=== PATIENT | female | born 1945 | race Caucasian/White ===

== ENCOUNTER 2020-08-11 11:06 | Emergency (ER) | payer MEDICARE, SELFPAY ==
--- NOTE | 2020-08-11 | CT_ITS ---
EXAMINATION: CT ANGIOGRAM OF THE CHEST WITH AND WITHOUT CONTRAST (CT PULMONARY ANGIOGRAM FOR PE) CLINICAL INFORMATION: Reason for Exam pt c chest pain and sob b/l leg swelling COMPARISON: Previous chest x-ray from earlier the same day and chest CTA from 2006 TECHNIQUE: Prior to contrast administration, noncontrast localization images were obtained. Subsequently, multidetector volumetric imaging was performed from the thoracic inlet to below the diaphragms following the administration of 80 mL Omnipaque 350 intravenous contrast. No contrast reaction reported Sagittal, coronal, and MIP oblique sagittal reformatted images were obtained on the CT workstation, uploaded to PACS, and reviewed. This CT examination was performed using dose optimization techniques as appropriate, variously including the following: *Automated exposure control *Adjustment of mA and/or kV according to patient size (this includes techniques or standardized protocols for targeted exams where dose is matched to indication/reason for exam; i.e. extremities or head) *Use of iterative reconstruction technique Total exam dose-length product 1787 mGy-cm FINDINGS: QUALITY OF STUDY/CONTRAST BOLUS: Satisfactory. PULMONARY ARTERIES: No central or segmental pulmonary emboli. THORACIC AORTA: No aneurysm or dissection. LUNG: As a small 3 mm calcified right lower lobe nodule axial image 294 series 10. There is a heterogeneous attenuation in the lungs and increased interstitial markings questionable for mild pulmonary edema. There is dependent atelectasis in both lower lobes adjacent to the effusions. PLEURA: There are small bilateral pleural effusions, right greater than left. MEDIASTINUM: The heart is enlarged. There is a tiny pericardial effusion. There are small mediastinal lymph nodes. No enlarged lymph nodes are seen. No evidence of septal bowing or right heart strain. CHEST WALL/AXILLA: There are surgical clips in the right axilla. There is a right breast mass and marked skin thickening and infiltration of the fat suspicious for malignancy. There is a 1.3 x 1.5 cm triangular-shaped calcification. There are collateral vessels seen in the left upper arm and chest wall. OSSEOUS STRUCTURES: No acute or suspicious osseous abnormality. UPPER ABDOMEN: There are bilateral renal cysts. The liver is not completely imaged but may be enlarged. No reflux of contrast into the hepatic veins to suggest elevated right heart pressures. IMPRESSION: No evidence of pulmonary embolism. Enlarged heart, increased interstitial markings and small bilateral pleural effusions questionable for mild CHF. Right breast mass, skin thickening and induration of the fat suggestive of neoplasm. Surgical clips in the right axilla. VTE: negative
--- NOTE | 2020-08-11 | XR_ITS ---
EXAMINATION: XR CHEST CLINICAL INFORMATION: Chest tightness and shortness of breath COMPARISON: Chest radiographs 01/18/2010, 09/04/2007 TECHNIQUE: Portable upright AP view of the chest was obtained. FINDINGS: There is coarsening of the bronchiolar markings with subsegmental atelectasis at the bilateral lateral bases. There is no lobar or segmental airspace consolidation, vascular congestion, or definite effusion. The heart is within the limits of normal size. The hilar and mediastinal contours and bony structures are unremarkable. There are surgical clips overlying right axilla. IMPRESSION: 1. Coarsening bronchiolar markings. Bilateral base subsegmental atelectasis. 2. No lobar or segmental airspace consolidation. No vascular congestion.
--- NOTE | 2020-08-11 | CT_ITS ---
EXAMINATION: CT ABDOMEN AND PELVIS WITH CONTRAST CLINICAL INFORMATION: Nausea, vomiting, diarrhea and abdominal pain. COMPARISON: CTA chest dated 08/28/2007. TECHNIQUE: Multidetector volumetric images were obtained from the superior aspect of the liver through the pubic symphysis following administration 85 mL of Omnipaque 350 intravenous contrast. Sagittal and coronal reformatted images were obtained on the technologist's workstation. Oral contrast: No This CT examination was performed using dose optimization techniques as appropriate, variously including the following: *Automated exposure control *Adjustment of mA and/or kV according to patient size (this includes techniques or standardized protocols for targeted exams where dose is matched to indication/reason for exam; i.e. extremities or head) *Use of iterative reconstruction technique DLP: 1787 mGy-cm FINDINGS: LUNG BASES: There are small right and very small left pleural effusions. There is adjacent compressive atelectasis. Further mild linear scar/subsegmental atelectasis is seen within the right middle lobe and the lingula. A 3 mm noncalcified nodule is newly seen at the lateral right base (17:3). There is a very small pericardial effusion. There are mitral annular and coronary artery atherosclerotic calcifications. There is abnormal right breast dermal and parenchymal soft tissue density, with punctate and coarse calcifications. LIVER, GALLBLADDER, AND BILIARY TREE: The liver is normal in size, shape, and attenuation. No focal hepatic lesion or biliary ductal dilatation is present. The gallbladder is unremarkable with no evidence of radiopaque gallstones, gallbladder wall thickening, or obvious pericholecystic inflammatory changes. PANCREAS: Unremarkable. SPLEEN: Unremarkable. ADRENAL GLANDS: Unremarkable. KIDNEYS AND URETERS: The kidneys are normal in size, shape, and attenuation. No hydronephrosis, hydroureter, or calculi seen. There are multiple low-attenuation bilateral renal probable cysts, some too small to fully characterize with CT. There is mild nonspecific bilateral perinephric stranding. BLADDER: Unremarkable. GASTROINTESTINAL TRACT: A patent sigmoid anastomotic staple line is seen. There is adjacent downstream sigmoid wall thickening (7:53 and 18:69). There is mild diverticulosis, without acute diverticulitis. No obstruction, free intraperitoneal air or abscess is seen. The vermiform appendix appears normal. ABDOMINAL WALL: There is a healed anterior pelvic midline incision. This shows adjacent subcutaneous fat stranding, possibly scarring. There is a diastases rectus. No focal hernia defect is seen. LYMPH NODES: Normal. VASCULAR: There is mild aortoiliac atherosclerotic calcification. No abdominal aortic aneurysm is seen. PELVIC VISCERA: The uterus and adnexa are unremarkable. OSSEOUS STRUCTURES: There is multi-level marked lower thoracic and mild lumbar spondylosis. No acute or aggressive osseous abnormality is seen. IMPRESSION: 1. There is a patent sigmoid anastomotic staple line. There is adjacent downstream focal sigmoid wall thickening, which can be more fully evaluated with a barium enema or endoscopy, if clinically indicated. 2. No obstruction, free intraperitoneal air or abscess is seen. The appendix is normal. There is mild diverticulosis, without acute diverticulitis. 3. No urinary calculus or obstructive uropathy is seen bilaterally. There are low-attenuation bilateral renal probable cysts, too small fully characterize with CT. 4. There are small right and very small left pleural effusions. A pericardial effusion is seen. 5. A 3 mm lateral right base noncalcified nodule is newly seen. According to the UPDATED 2017 Fleischner Society recommendations, the advised follow-up imaging for solid nodules < 6 mm is: LOW RISK PATIENT: No routine follow-up. HIGH RISK PATIENT: Optional CT at 12 months. 6. There is abnormal increased attenuation of the right breast skin and parenchyma, with parenchymal calcifications. This is suspicious for possible malignancy and/or infection. Strongly recommend clinical correlation and correlation with the patient's most recent mammograms.
--- NOTE | 2020-08-11 | ECG_ITS ---
Test Reason : SOB Blood Pressure : / mmHG Vent. Rate : 087 BPM Atrial Rate : 087 BPM P-R Int : 176 ms QRS Dur : 082 ms QT Int : 366 ms P-R-T Axes : 055 018 035 degrees QTc Int : 440 ms Sinus rhythm with frequent Premature ventricular complexes trigeminy Abnormal ECG When compared with ECG of 18-JAN-2010 18:27, Premature ventricular complexes are now Present Heart rate has decreased Referred By: Geovanna Joseph Electronically Signed By:LACIE PETERSON MD
[2020-08-11 11:20] VITALS: BP 130/60; BP 141/65; PULSE 88; RESP 29; TEMP 36.4; O2SAT 100; O2SAT 95; BMI 43.5
[2020-08-11 11:36] LABS: Glucose, Whole Blood 133 mg/dL (60-115)
[2020-08-11 11:57] LABS: MANUAL DIFF FLAG NO
[2020-08-11 11:59] LABS: Basophils Percent Auto 0.3 % (0-2); Eosinophils Absolute Auto 0.2 X10*3/uL (0.0-0.4); Hematocrit 32.5 % (37-47); Hemoglobin 9.4 g/dl (12.0-16.0); Imm Gran Abs Auto 0.01 X10*3/uL (0.00-0.03); Imm Gran Pct Auto 0.1 % (0.0-0.4); Lymphocytes Absolute Auto 0.8 X10*3/uL (1.2-4.9); Mean Corpuscular HGB Conc 28.9 g/dl (31.0-35.0); Mean Corpuscular Hemoglobin 27.7 pg (27.0-33.0); Mean Corpuscular Volume 95.9 fL (80-98); Neutrophils Absolute Auto 5.5 X10*3/uL (2.0-8.3); Neutrophils Percent Auto 72.6 % (45-73); Platelet Count 286 X10*3/uL (160-400); Red Blood Count 3.39 X10*6/uL (4.20-5.50); Red Cell Distribution Width 14.3 % (11.0-16.0); White Blood Count 7.6 X10*3/uL (4.8-10.8)
[2020-08-11 12:05] LABS: INTERNATIONAL NORM RATIO 0.9 (0.9-1.1); Prothrombin Time 10.7 SEC (10.8-13.0)
[2020-08-11] MEDS: Albuterol Sulfate (0.083%) 2.5 MG/3 ML VIAL.NEB INHALE (12:19)
[2020-08-11 12:33] LABS: Alanine Aminotransferase 16 U/L (0-31); Albumin Level 3.6 g/dL (3.5-5.0); Alkaline Phosphatase 88 U/L (39-117); Anion Gap 10 (12-20); Aspartate Amino Transferase 18 U/L (5-31); Bilirubin Direct < 0.2 mg/dL (0.0-0.5); Bilirubin Total 0.2 mg/dL (0.0-1.0); Blood Urea Nitrogen 28 mg/dL (9-16); Calcium 8.7 mg/dL (8.4-10.2); Carbon Dioxide 34 mmol/L (22-29); Chloride 100 mmol/L (96-108); Creatinine Clr Calc Pharmacy 56.5; Estimated Glomerular Filt Rate 55; Glucose Random 144 mg/dL (60-115); Sodium 140 mmol/L (135-145); Total Protein 6.3 g/dL (6.5-8.0)
[2020-08-11 12:36] LABS: B Type Natriuretic Peptide 85 pg/mL (<100); Troponin-I High Sensitivity 8.2 ng/L (<3.5-17.0)
--- NOTE | 2020-08-11 12:43 | ED_ITS ---
HPI - General Adult General Chief complaint: Dyspnea Stated complaint: sob/cp Time Seen by Provider: 08/11/20 11:26 Source: patient Mode of arrival: ambulatory Limitations: no limitations History of Present Illness HPI narrative: 74yoF c PMHX of DM type 2, severe aortic stenosis, pulmonary hypertension, on 2-1/2 to 3 L of nasal cannula oxygen at home, chronic anemia, glaucoma, MRSA, macular degeneration, skin/colon and breast cancer presenting to the ED c c/o 3 weeks of generalized weakness, fatigue, lightheadedness, headaches, cold hands/feet, nose bleeds, Chest tightness, SOB worse c exertion and laying down, b/l leg swelling, dark cloudy urine and black colored stools/constipation intermittently. Denies fevers, N/V, changes in vision, cough, sputum production, back pain or paresthesias. Related Data Previous Rx's Medication Instructions Recorded azithromycin [Zithromax] See Rx Instructions PO .COMPLEX #6 08/11/20 tab prednisone 20 mg PO DAILY 5 Days #5 tab 08/11/20 Allergies Allergy/AdvReac Type Severity Reaction Status Date / Time acetaminophen [From Percocet] Allergy Unknown UNKNOWN Verified 08/11/20 11:19 aspirin [From Percodan] Allergy Unknown UNKNOWN Verified 08/11/20 11:19 codeine [Codeine] Allergy Unknown UNKNOWN Verified 08/11/20 11:19 diazepam [From Valium] Allergy Unknown UNKNOWN Verified 08/11/20 11:19 flurazepam [From Dalmane] Allergy Unknown UNKNOWN Verified 08/11/20 11:19 haloperidol [From Haldol] Allergy Unknown UNKNOWN Verified 08/11/20 11:19 ketamine [From Ketalar] Allergy Unknown UNKNOWN Verified 08/11/20 11:19 lorazepam [From Ativan] Allergy Unknown UNKNOWN Verified 08/11/20 11:19 meperidine [From Demerol] Allergy Unknown UNKNOWN Verified 08/11/20 11:19 morphine [Morphine] Allergy Unknown UNKNOWN Verified 08/11/20 11:19 oxycodone [From Percodan] Allergy Unknown UNKNOWN Verified 08/11/20 11:19 procaine [From Novocain] Allergy Unknown UNKNOWN Verified 08/11/20 11:19 codeine Allergy Unknown hives, Uncoded 03/14/20 00:00 itching, N/V demerol Allergy Unknown hives, Uncoded 03/14/20 00:00 itching, n/v From Dalmane Allergy Unknown UNKNOWN Uncoded 07/20/20 16:45 From Haldol Allergy Unknown UNKNOWN Uncoded 07/20/20 16:45 From Seconal Allergy Unknown UNKNOWN Uncoded 07/20/20 16:45 morphine Allergy Unknown hives, Uncoded 03/14/20 00:00 itching, n/v novaciane Allergy Unknown hypertention, Uncoded 03/14/20 00:00 tachycardia, headaches percodan Allergy Unknown hives, Uncoded 03/14/20 00:00 itching, n/v seconal, haldol, dalmane Allergy Unknown hyperactivity, Uncoded 03/14/20 00:00 tachycardia, hallucination, headaches sodium pent, ketimar, Allergy Unknown hallucinations, Uncoded 03/14/20 00:00 katimine combative tramadol Allergy Unknown hives, Uncoded 03/14/20 00:00 itching, n/v valium, ativan Allergy Unknown headaches, Uncoded 03/14/20 00:00 hallucination, tachycardia Review of Systems Review of Systems: Yes all other systems are reviewed and are negative Constitutional: Constitutional: Reports as per HPI, Denies chills, Denies excessive sweating, Reports fatigue, Denies fever(s), Denies frequent falls, Reports headache(s) and Reports weakness Eyes: Eyes: Reports as per HPI ENT: Reports as per HPI, Denies Normal hearing present, Denies vertigo, Denies dizziness, Denies ear discharge, Reports headache(s), Denies nasal congestion, Denies neck pain and Denies sore throat Cardiovascular: Cardiovascular: Reports as per HPI, Reports chest pain, Denies rapid heart rate, Denies lightheadedness, Denies radiating jaw, neck or arm pain, Denies palpitations, Reports dyspnea, Reports dyspnea on exertion and Reports orthopnea Respiratory: Respiratory: Reports as per HPI, Denies cough, Reports dyspnea and Reports dyspnea on exertion Gastrointestinal: Gastrointestinal: Reports as per HPI, Denies abdominal pain, Denies constipation, Reports diarrhea, Reports nausea and Reports vomiting Genitourinary: Genitourinary: Reports as per HPI, Denies hematuria, Denies change in libido, Denies urinary frequency, Denies dysuria and Denies urinary hesitancy Musculoskeletal: Musculoskeletal: Reports as per HPI, Denies abnormal gait, Denies muscle weakness, Denies neck pain, Denies numbness and Denies tingling Integumentary/Breasts: Skin/Breast: Reports as per HPI and Denies rash Neurologic: Reports as per HPI, Denies Normal hearing present, Denies Neuro- related abnormal movements, Denies Abnormal speech present, Denies abnormal gait, Denies behavioral changes, Denies confusion, Denies vertigo, Denies dizziness, Denies frequent falls, Reports headache(s), Denies focal weakness, Denies memory loss, Denies numbness, Denies Other visual disturbances, Denies convulsions, Denies seizure-like activity, Denies tingling, Denies paresthesias and Reports weakness Psychiatric: Psychiatric: Reports as per HPI, Denies abnormal sleep pattern, Reports anxiety, Denies behavioral changes, Denies change in appetite, Denies change in libido, Denies confusion, Reports depression, Denies difficulty concentrating, Denies auditory hallucinations, Reports hopelessness, Denies irritability, Reports anhedonia, Denies memory loss, Denies mood swings, Denies panic attacks, Denies paranoia, Denies visual hallucinations, Denies hallucinations, Denies tactile hallucinations, Denies homicidal ideation and Denies suicidal ideation Endocrine: Endocrine: Denies change in libido, Denies excessive sweating, Reports fatigue and Denies palpitations Hematologic/Lymphatic: Hematologic/Lymphatic: Reports as per HPI Allergic/Immunologic: Allergic/Immunologic: Reports as per HPI [facility] Social History Social History Alcohol intake: never Smoking Status: Never smoker Use of substances other than those prescribed or required for medical reasons: No Advance Directives: Yes Advance Directives on File: Yes Advance Directives Date on File: 08/11/20 Physical Exam Vital Signs and I&O and Narrative: Vital Signs and I&O: Vital Signs Temp 97.5 F 08/11/20 14:48 Pulse 87 08/11/20 14:48 Resp 18 08/11/20 14:48 BP 121/64 08/11/20 14:48 Pulse Ox 90 L 08/11/20 16:35 Intake & Output 08/10/20 08/11/20 08/11/20 18:59 06:59 18:59 Weight 104.553 kg Body Mass Index 43.5 Const: General: cooperative, comfortable, no acute distress, well developed, alert, awake and Physically active; No confusion Nutritional Appearance: well nourished and obese Orientation/consciousness: patient oriented x3 and No confusion Limitations: physical limitations ( 2 person assist) and other limitations HENMT: Head: Yes normal to inspection, Yes No palpable skull fracture present, Yes normocephalic and Yes atraumatic Ears: hearing grossly normal bilaterally General nose exam: Normal external nose present Face and sinus: Yes normal facial exam Mouth: moist mucous membranes Eyes: General: appearance normal, both eyes and all related structures Visual Shaw: normal visual shaw by confrontation Alignment and Position: alignment normal Periorbital: periorbital findings normal Eyelids: Yes eyelids normal Conjunctivae: conjunctivae normal Sclerae: sclerae normal Pupils: Equal, round and reactive pupils present EOM: EOMs intact bilaterally Neck: Neck: Yes normal visual inspection, Yes full ROM, Yes no lymphadenopathy, Yes no meningeal signs, Yes trachea midline and Yes supple Chest: Chest palpation & inspection: normal inspection of the chest Resp: Effort & Inspection: normal respiratory effort and able to speak in complete sentences Auscultation: clear to auscultation bilaterally, no crackles, no rales, no rhonchi and no wheezes Cardio: Rate: regular rate Rhythm: regular rhythm Heart sounds: S1 no rmal heart sound present and S2 normal heart sound present Peripheral pulses: Peripheral pulses 2+ throughout GI: Inspection: Yes normal to inspection Palpation (GI): Soft to palpation, Tenderness to palpation present (GI) (diffusely) and No hepatosplenomegaly present Percussion: Yes normal to percussion Auscultation: normal bowel sounds Rectal Exam - Female: deferred (patient refused rectal exam) : General: Yes no CVA tenderness Back/Spine/Pelvis: Back: no CVA tenderness Cervical Spine: normal cervical lordosis and cervical ROM normal Thoracic/Lumbar Spine: thoracic and lumbar spine normal to inspection and thoraco-lumbar ROM normal Skin: General skin exam: no rashes or lesions noted, elasticity normal and turgor normal Trauma: no lacerations or abrasions Wounds: no wounds Hair: normal Nails: normal Neuro: General: patient oriented x3, no meningeal signs and No confusion Cranial nerves: Yes CN's II-XII intact bilaterally, Yes Equal, round and re active pupils present and No Normal hearing present Cognition (Neuro): normal cognition Speech: No Abnormal speech present Gait exam (Neuro): Normal gait present Motor exam (neuro): 5/5 motor strength present throughout Extrem: General: Yes normal to inspection, Yes full ROM, Yes capillary refill normal, Yes no clubbing, cyanosis or edema, No no pedal edema, No no calf tenderness, Yes normal gait and No edema Right upper extremity: normal to inspection, full ROM and normal capillary refill; no edema Left upper extremity: normal to inspection, full ROM and normal capillary refill; no edema Right lower extremity: normal to inspection, full ROM and normal capillary refill; no edema Left lower extremity: normal to inspection, full ROM and normal capillary refill; no edema Psych: Appearance: grossly normal and well kempt Mental Status: mental status grossly normal Speech and movement: Normal speech and movement present and Clear speech present Affect: normal affect Attitude: cooperative Thought process: Normal thought process present Thought content: Normal t hought content present Insight: Good insight present (Psych) Judgement: Good judgement present (Psych) Course Course Course Narrative: - Patient with mild anemia when compared to prior her last H&H in June of 2017 was 35. Trop elevated at 8.2 therefore repeat 3 hours after the first obtained and 8.6 therefore negative delta. - CXR nega for pna - CTA of chest neg for PE although revealed right brest mass suggestive of neoplasm. - CT scan of abd/pelvis c IV contrast revealed chronic changes no acute processes. - Will plan to admit if not obtain PT/CM consult then re-evaluate. - patient evaluated by PT therapy and recommended inpatient rehabilitation although patient refused reports that she will not go to a rehab to get COVID. Patient does not meet admission due to she is not tachypneic, not tachycardic, not hypoxic or febrile. Chest x-ray and CTA are negative and all of her CT scan findings on her CT scan of abdomen and pelvis are all chronic therefore will DC home with visiting nurses and instructions to return if any new or worsening symptoms to follow-up with primary care provider, Dr. Carpenter for her breast mass as well. Patient understands agrees the plan. Medical Decision Making MDM Narrative Medical decision making narrative: 74yoF c PMHX of DM type 2, severe aortic stenosis, pulmonary hypertension, on 2-1/2 to 3 L of nasal cannula oxygen at home, chronic anemia, glaucoma, MRSA, macular degeneration, skin/colon and breast cancer presenting to the ED c c/o 3 weeks of generalized weakness, fatigue, lightheadedness, headaches, cold hands/feet, nose bleeds, Chest tightness, SOB worse c exertion and laying down, b/l leg swelling, dark cloudy urine and black colored stools/constipation intermittently. Denies fevers, N/V, changes in vision, cough, sputum production, back pain or paresthesias. - Concern for ACS vs PE vs COPD excerbation. - Plan: Labs, CXR, EKG, CTA of chest to evaluate for PE, CT scan of abdomen and pelvis with IV contrast to evaluate for any acute processes, provide a breathing treatment then re-evaluate. Lab Data Result diagrams: 08/11/20 11:53 08/11/20 11:53 Labs: Lab Results 08/11/20 08/11/20 08/11/20 Range/Units 11:31 11:53 11:53 WBC 7.6 (4.8-10.8) X10*3/uL RBC 3.39 L (4.20-5.50) X10*6/uL Hgb 9.4 L (12.0-16.0) g/dl Hct 32.5 L (37-47) % MCV 95.9 (80-98) fL MCH 27.7 (27.0-33.0) pg MCHC 28.9 L (31.0-35.0) g/dl RDW 14.3 (11.0-16.0) % Plt Count 286 (160-400) X10*3/uL MPV 10.0 (9.4-12.3) fL Immature Gran % (Auto) 0.1 (0.0-0.4) % Neut % (Auto) 72.6 (45-73) % Lymph % (Auto) 11.0 L (20-40) % Wise % (Auto) 13.0 H (2-11) % Eos % (Auto) 3.0 (0-4) % Baso % (Auto) 0.3 (0-2) % Lymph # (Auto) 0.8 L (1.2-4.9) X10*3/uL Wise # (Auto) 1.0 (0.1-1.2) X10*3/uL Eos # (Auto) 0.2 (0.0-0.4) X10*3/uL Baso # (Auto) 0.0 (0.0-0.2) X10*3/uL Abs Immat Gran (auto) 0.01 (0.00-0.03) X10*3/uL Absolute Neuts (auto) 5.5 (2.0-8.3) X10*3/uL Absolute Nucleated RBC 0.000 (0.0-0.012) X10*3/uL Nucleated RBC % (auto) 0.0 (0.0-0.2) /100WBC PT 10.7 L (10.8-13.0) SEC INR 0.9 (0.9-1.1) Sodium (135-145) mmol/L Potassium (3.3-5.1) mmol/l Chloride (96-108) mmol/L Carbon Dioxide (22-29) mmol/L Anion Gap (12-20) BUN (9-16) mg/dL Creatinine (0.5-1.4) mg/dL Estim Creat Clear Calc Estimated GFR POC Glucose 133 H (60-115) mg/dL Random Glucose (60-115) mg/dL Calcium (8.4-10.2) mg/dL Total Bilirubin (0.0-1.0) mg/dL Direct Bilirubin (0.0-0.5) mg/dL AST (5-31) U/L ALT (0-31) U/L Alkaline Phosphatase (39-117) U/L Troponin I High Sens (<3.5-17.0) ng/L B-Natriuretic Peptide (<100) pg/mL Total Protein (6.5-8.0) g/dL Albumin (3.5-5.0) g/dL TSH (0.32-4.0) mIU/mL Urine Color Urine Appearance Urine pH (5.0-8.0) Ur Specific Dougherty (1.005-1.025) Urine Protein (NEG-TRACE) MG/DL Urine Glucose (UA) (NEG) MG/DL Urine Ketones (NEG) MG/DL Urine Blood (NEG) Urine Nitrite (NEG) Ur Leukocyte Esterase (NEG) Urine RBC (0) /HPF Urine WBC (0-4) /HPF Ur Squamous Epith Cells /LPF Urine Bacteria /LPF 08/11/20 08/11/20 08/11/20 Range/Units 11:53 11:53 13:00 WBC (4.8-10.8) X10*3/uL RBC (4.20-5.50) X10*6/uL Hgb (12.0-16.0) g/dl Hct (37-47) % MCV (80-98) fL MCH (27.0-33.0) pg MCHC (31.0-35.0) g/dl RDW (11.0-16.0) % Plt Count (160-400) X10*3/uL MPV (9.4-12.3) fL Immature Gran % (Auto) (0.0-0.4) % Neut % (Auto) (45-73) % Lymph % (Auto) (20-40) % Wise % (Auto) (2-11) % Eos % (Auto) (0-4) % Baso % (Auto) (0-2) % Lymph # (Auto) (1.2-4.9) X10*3/uL Wise # (Auto) (0.1-1.2) X10*3/uL Eos # (Auto) (0.0-0.4) X10*3/uL Baso # (Auto) (0.0-0.2) X10*3/uL Abs Immat Gran (auto) (0.00-0.03) X10*3/uL Absolute Neuts (auto) (2.0-8.3) X10*3/uL Absolute Nucleated RBC (0.0-0.012) X10*3/uL Nucleated RBC % (auto) (0.0-0.2) /100WBC PT (10.8-13.0) SEC INR (0.9-1.1) Sodium 140 (135-145) mmol/L Potassium 4.0 (3.3-5.1) mmol/l Chloride 100 (96-108) mmol/L Carbon Dioxide 34 H (22-29) mmol/L Anion Gap 10 L (12-20) BUN 28 H (9-16) mg/dL Creatinine 1.00 (0.5-1.4) mg/dL Estim Creat Clear Calc 56.5 Estimated GFR 55 POC Glucose (60-115) mg/dL Random Glucose 144 H (60-115) mg/dL Calcium 8.7 (8.4-10.2) mg/dL Total Bilirubin 0.2 (0.0-1.0) mg/dL Direct Bilirubin < 0.2 (0.0-0.5) mg/dL AST 18 (5-31) U/L ALT 16 (0-31) U/L Alkaline Phosphatase 88 (39-117) U/L Troponin I High Sens 8.2 (<3.5-17.0) ng/L B-Natriuretic Peptide 85 (<100) pg/mL Total Protein 6.3 L (6.5-8.0) g/dL Albumin 3.6 (3.5-5.0) g/dL TSH (0.32-4.0) mIU/mL Urine Color YELLOW Urine Appearance CLEAR Urine pH 6.0 (5.0-8.0) Ur Specific Dougherty 1.010 (1.005-1.025) Urine Protein NEG (NEG-TRACE) MG/DL Urine Glucose (UA) NEG (NEG) MG/DL Urine Ketones NEG (NEG) MG/DL Urine Blood NEG (NEG) Urine Nitrite NEG (NEG) Ur Leukocyte Esterase NEG (NEG) Urine RBC 0-2 (0) /HPF Urine WBC 1-4 (0-4) /HPF Ur Squamous Epith Cells 1+ /LPF Urine Bacteria NONE /LPF 08/11/20 08/11/20 08/11/20 Range/Units 13:03 14:24 15:00 WBC (4.8-10.8) X10*3/uL RBC (4.20-5.50) X10*6/uL Hgb (12.0-16.0) g/dl Hct (37-47) % MCV (80-98) fL MCH (27.0-33.0) pg MCHC (31.0-35.0) g/dl RDW (11.0-16.0) % Plt Count (160-400) X10*3/uL MPV (9.4-12.3) fL Immature Gran % (Auto) (0.0-0.4) % Neut % (Auto) (45-73) % Lymph % (Auto) (20-40) % Wise % (Auto) (2-11) % Eos % (Auto) (0-4) % Baso % (Auto) (0-2) % Lymph # (Auto) (1.2-4.9) X10*3/uL Wise # (Auto) (0.1-1.2) X10*3/uL Eos # (Auto) (0.0-0.4) X10*3/uL Baso # (Auto) (0.0-0.2) X10*3/uL Abs Immat Gran (auto) (0.00-0.03) X10*3/uL Absolute Neuts (auto) (2.0-8.3) X10*3/uL Absolute Nucleated RBC (0.0-0.012) X10*3/uL Nucleated RBC % (auto) (0.0-0.2) /100WBC PT (10.8-13.0) SEC INR (0.9-1.1) Sodium (135-145) mmol/L Potassium (3.3-5.1) mmol/l Chloride (96-108) mmol/L Carbon Dioxide (22-29) mmol/L Anion Gap (12-20) BUN (9-16) mg/dL Creatinine (0.5-1.4) mg/dL Estim Creat Clear Calc Estimated GFR POC Glucose 125 H (60-115) mg/dL Random Glucose (60-115) mg/dL Calcium (8.4-10.2) mg/dL Total Bilirubin (0.0-1.0) mg/dL Direct Bilirubin (0.0-0.5) mg/dL AST (5-31) U/L ALT (0-31) U/L Alkaline Phosphatase (39-117) U/L Troponin I High Sens 8.6 (<3.5-17.0) ng/L B-Natriuretic Peptide (<100) pg/mL Total Protein (6.5-8.0) g/dL Albumin (3.5-5.0) g/dL TSH 1.34 (0.32-4.0) mIU/mL Urine Color Urine Appearance Urine pH (5.0-8.0) Ur Specific Dougherty (1.005-1.025) Urine Protein (NEG-TRACE) MG/DL Urine Glucose (UA) (NEG) MG/DL Urine Ketones (NEG) MG/DL Urine Blood (NEG) Urine Nitrite (NEG) Ur Leukocyte Esterase (NEG) Urine RBC (0) /HPF Urine WBC (0-4) /HPF Ur Squamous Epith Cells /LPF Urine Bacteria /LPF ECG Data Attestation: I personally reviewed and interpreted this ECG as follows: Prior ECG tracings: available for review Interpretation: sinus rhythm with frequent PVCs with a ventricular rate of 87, normal QRS duration, normal QT /QTC interval. No acute ischemic changes. Similar compared to priors on 01/18/2010. Discharge Plan Discharge Clinical Impression: Breast mass, right, Pleural effusion, Diverticulosis of colon, Weakness generalized COPD (chronic obstructive pulmonary disease) Qualifiers: COPD type: COPD with acute exacerbation Qualified Code(s): J44.1 - Chronic obstructive pulmonary disease with (acute) exacerbation Patient Disposition: Home, Self-Care Instructions: COPD (Chronic Obstructive Pulmonary Disease) (ED), Pleural Effusion (ED), Breast Mass (ED) Prescriptions: New prednisone 20 mg tablet 20 mg PO DAILY 5 Days Qty: 5 RF: 0 azithromycin [Zithromax] 250 mg tablet See Rx Instructions PO .COMPLEX Qty: 6 RF: 0 Referrals: [facility] [Outside] - 2 days Brian Carpenter MD [Physician] - 2 days (recurrent right breast mass) Print Language: Lithuanian
--- NOTE | 2020-08-11 12:52 | PC.NURSE ---
Lizzie Goldberg [phone]
[2020-08-11 13:21] LABS: Glucose Urine UA NEG (NEG); Leukocyte Esterase Urine NEG (NEG); Nitrite Urine NEG (NEG); Urine Blood NEG (NEG); Urine Ketones NEG (NEG); Urine Protein NEG (NEG-TRACE)
[2020-08-11 13:22] LABS: Appearance Urine CLEAR; Color Urine YELLOW
[2020-08-11 13:34] VITALS: BP 133/61; PULSE 80; RESP 20; TEMP 36.3
[2020-08-11 13:54] LABS: RBC Urine 0-2 /HPF (0); Squamous Epithelial Cell Urine 1+ /LPF
[2020-08-11] MEDS: iohexoL 350 MG/ML 100 ML INFUS..BTL IV (14:09)
[2020-08-11 14:17] LABS: Thyroid Stimulating Hormone 1.34 mIU/mL (0.32-4.0)
[2020-08-11 14:28] LABS: Glucose, Whole Blood 125 mg/dL (60-115)
[2020-08-11 14:48] VITALS: BP 121/64; PULSE 87; RESP 18; TEMP 36.4; O2SAT 100
[2020-08-11 15:34] LABS: Troponin-I High Sensitivity 8.6 ng/L (<3.5-17.0)
--- NOTE | 2020-08-11 15:58 | MHC.CM.ED ---
Received case management consult [facility] [place]. Patient came to ER with multiple complaints. Work up essentially negative. Physical therapy eval ordered and is pending. Anticipate patient will be in ER overnight. Continue to monitor d/c needs.
--- NOTE | 2020-08-11 16:07 | PC.NURSE ---
pt at bedside for an evaluation
[2020-08-11 16:35] VITALS: O2SAT 90
[2020-08-11 16:50] VITALS: BP 135/61; PULSE 90; RESP 20; O2SAT 100
--- NOTE | 2020-08-11 16:56 | MHC.CM.ED ---
Physical therapy eval completed. Short term rehab is recommended. Patient is not interested in STR at this time and is requesting to go home with services. Referral made to [facility] via [employer]. Face to face completed and signed. [facility] with oxygen booked. Med nec with chart. Continue to monitor for d/c needs.
== END 2020-08-11 17:24 | disposition home or self-care (01) ==
PROVIDERS: Physician Assistant Medical; Emergency Provider Internal Medicine; PCP Internal Medicine
DX: J44.1 Chronic obstructive pulmonary disease with (acute) exacerbation (principal); F98.1 Encopresis not due to a substance or known physiological condition; E11.9 Type 2 diabetes mellitus without complications; Z79.899 Other long term (current) drug therapy; Z99.81 Dependence on supplemental oxygen
CPT/HCPCS: 36415; 71045; 71275; 74177; 80048; 80076; 81001; 82947; 83880; 84443; 84484; 85025; 85610; 93005; 97163; 99284

== ENCOUNTER → 2020-09-14 11:49 | Outpatient (BNVA) | payer MEDICARE, SELFPAY | PROVIDERS: PCP Internal Medicine; Referring Provider Internal Medicine; Visit Provider Surgery | DX: Z13.89 Encounter for screening for other disorder (principal) | CPT/HCPCS: 99202 ==

== ENCOUNTER 2020-09-27 12:38 | Outpatient (REF) | payer MEDICARE, SELFPAY ==
[2020-09-27 12:56] VITALS: BP 135/59; PULSE 80; RESP 16; TEMP 36.4; O2SAT 100
[2020-09-27 12:59] VITALS: BMI 44.3
[2020-09-27 13:55] VITALS: BP 153/49; PULSE 82; RESP 18; O2SAT 99
--- NOTE | 2020-09-27 13:56 | P.OP_ITS ---
Operative Note Operative Note Date of Service: 09/27/20 Narrative: Preoperative diagnosis: History of right breast carcinoma and change in right breast with skin thickening and question of mass Postoperative diagnosis: Same Procedure: Examination and biopsy of skin of right breast Anesthesia: Local 1% lidocaine 3 cc Specimen: Skin biopsy right breast Estimated blood loss: 10 cc Immediate complications: none Other findings: The immediate subcutaneous tissues below the area where the skin biopsy was taken were extremely indurated and appeared calcified. It was not possible to cut this tissue with a scalpel. Indications: This is a 75-year-old female with a remote history of right breast carcinoma who reports that she has noticed slow change in her right breast. It has been getting smaller and firmer. She has pain in the area intermittently. She recently was seen in the emergency room for respiratory complaints. A chest CT was obtained and demonstrated a probable right breast mass and diffuse thickening of the skin of the right breast. Procedure detail: Time-out procedure was performed and the operative site was identified. Examination was performed. Lungs were clear to auscultation. Heart was regular in rate and rhythm with a 3/6 holosystolic murmur. The right breast was contracted and firm with some skin thickening noted centrally. The patient in the semi Auguste position, the right breast was prepped with Betadine solution and was draped sterilely. A transverse incision was made at about the 11 o'clock position 2 cm from the areola and was carried into the subcutaneous tissues. The immediate subcutaneous tissues were extremely indurat ed. Clinical impression was that the tissues were calcified. It was not possible to cut through the tissues with the scalpel to obtain a specimen. A portion of the incision margin was excised including a full-thickness of skin and superficial subcutaneous tissue. The specimen measured 0.4 x 1.2 cm. Bleeding from skin edges was controlled using the electrosurgical pencil. The wound was closed with 3 interrupted sutures of 4-0 nylon. A dry sterile dressing was applied. She tolerated the procedure well. She will keep the area dry and covered for 24 hours, will use acetaminophen as needed for pain, and will follow up in the office in about 1 week for suture removal and wound check.
== END 2020-09-27 12:39 | disposition home or self-care (01) ==
LOC: HO.MS 12:38
PROVIDERS: PCP Internal Medicine; Visit Provider Surgery
DX: N64.59 Other signs and symptoms in breast (principal); L90.5 Scar conditions and fibrosis of skin; Z85.3 Personal history of malignant neoplasm of breast; Z92.3 Personal history of irradiation
CPT/HCPCS: 19120; 88305

== ENCOUNTER 2020-10-03 11:14 | Outpatient (REF) | payer MEDICARE, SELFPAY ==
--- NOTE | 2020-10-03 | US_ITS ---
EXAMINATION: ULTRASOUND GUIDED CORE BIOPSY BREAST, RIGHT CLINICAL INFORMATION: Abnormal right breast. Remote history right breast cancer status post lumpectomy and radiation decades ago. Benign right punch biopsy 09/27/2020 (skin with dermal fibrosis, hyalinization and mild epidermal atrophy; no malignancy identified. Findings may be secondary to breast cancer treatment, radiation or surgical scar). Additional tissue sampling requested under ultrasound guidance. Prior outside mammography performed at [facility], approximately 2017. COMPARISON: CTA chest 08/11/2020. FINDINGS: Prior to procedure, patient was offered opportunity for bilateral mammography which was declined. Proper informed consent is obtained from the patient after discussion of the procedure, potential risks and complications, and alternatives. Patient was given an opportunity for questions. The patient appeared to understand. The patient consented to the procedure and signed the consent form. GUIDANCE: Ultrasound-guided; aseptic technique. LESION: Right breast periareolar 9:00 position. There is no specific area targeted. The right breast is diffusely abnormal. Samples obtained from area 2 cm across and 2 cm superficial to deep. APPROACH: Lateral medial. ANESTHESIA: 10 mL 1% lidocaine. DERMATOTOMY: Single skin crystal dermatotomy performed. NEEDLE: 14-gauge Achieve core biopsy device with 13.5-gauge co-axial guide needle. CORES: 6. CLIP: HydroMARK; shape: butterfly. The patient tolerated the procedure well. No immediate complications. Home instructions reviewed with the patient. Final pathology results are pending. US/US breast ndl core biopsy RT IMPRESSION: 1. Status post ultrasound-guided core biopsy right breast. 2. Clip placed: HydroMARK; shape: butterfly. 3. Pathology pending. An addendum report will be issued.
== END 2020-10-03 11:15 | disposition home or self-care (01) ==
LOC: HO.MAMMO 11:14
PROVIDERS: PCP Internal Medicine; Visit Provider Surgery
DX: N63.11 Unspecified lump in the right breast, upper outer quadrant (principal); Z85.3 Personal history of malignant neoplasm of breast
CPT/HCPCS: 19083; 88305; 88342

== ENCOUNTER → 2020-11-07 13:54 | Outpatient (BNVA) | payer MEDICARE, SELFPAY | PROVIDERS: PCP Physician Assistant Medical; Visit Provider Internal Medicine | DX: Z76.89 Persons encountering health services in other specified circumstances (principal) | CPT/HCPCS: Q3014 ==

== ENCOUNTER 2022-02-24 15:38 | Emergency (ER) | payer MEDICARE, SELFPAY ==
[2022-02-24] VITALS (7 sets, daily range): BP systolic 126–146; BP diastolic 55–83; PULSE 81–93; RESP 16–29; TEMP 36.4–36.7; O2SAT 95–100; BMI 45.2
--- NOTE | ~2022-02-24 | XR_ITS ---
EXAMINATION: XR CHEST CLINICAL INFORMATION: Shortness of breath. COMPARISON: CT of the chest dated from 08/11/2020. Chest radiograph also dated from 08/11/2020. TECHNIQUE: AP view of the chest was obtained. FINDINGS: Stable cardiomegaly. Atherosclerotic disease of the thoracic aorta. There is blunting of the left costophrenic angle which may be due to trace pleural effusion. Similar degree of chronic interstitial thickening. No focal consolidation, although evaluation of the left lower lobe/retrocardiac region is somewhat challenging due to overlying enlarged cardiac silhouette. No pneumothorax. No acute osseous abnormalities. Right axillary surgical clips. XR/XR chest 1V IMPRESSION: Small left pleural effusion. No dense consolidation.
--- NOTE | 2022-02-24 16:06 | ED_ITS ---
HPI - SOB/Dyspnea General Chief Complaint: Dyspnea Stated Complaint: SOB, 99% ON DUONEB @ THIS TIME PER EMS Time Seen by Provider: 02/24/22 16:05 Source: patient Mode of arrival: EMS Limitations: no limitations History of Present Illness HPI Narrative: Patient is 76 years old female morbidly obese with history of chronic hypoventilation syndrome and chronic obstructive sleep apnea intolerant to CPAP uses 3 L oxygen all the time comes here for increased shortness of breath last 2 days with increased weight gain and overall swelling of whole body. No chest pain or palpitation occasional cough no fever or chills patient received Solu- Medrol 125 mg IV and DuoNeb treatment prior to arrival Related Data Home Medications Medication Instructions Recorded Confirmed furosemide 20 mg tablet 40 mg PO QAM tab 09/14/20 11/21/20 potassium chloride 10 mEq 10 meq PO DAILY tab 09/14/20 11/21/20 tablet,extended release(part/cryst) (Klor-Con M) mecobalamin (vitamin B12) 5,000 500 mcg PO DAILY tab 11/07/20 11/21/20 mcg disintegrating tablet metformin 500 mg tablet 1,000 mg PO DAILY 11/21/20 11/21/20 Previous Rx's Medication Instructions Recorded atorvastatin 80 mg tablet 80 mg PO BEDTIME #30 tab 09/04/20 carvedilol 6.25 mg tablet (Coreg) 6.25 mg PO BID #60 tab 09/04/20 irbesartan 75 mg tablet 75 mg PO DAILY #30 tab 09/04/20 cuhaswxa-mvn-tutlu acid 0.4 1 tab PO DAILY #30 tab 09/04/20 mg-lycopene 300 mcg-lutein 250 mcg tablet (Centrum Silver) omeprazole magnesium 20 mg 20 mg PO DAILY #30 tab 09/04/20 tablet,delayed release (Prilosec OTC) acetazolamide 250 mg tablet 250 mg PO DAILY 90 Days #90 tab 10/10/21 theophylline 600 mg 300 mg PO Q12H 90 Days #90 tab 10/10/21 tablet,extended release 24 hr albuterol sulfate 90 mcg/actuation 1 puff PO Q4H PRN #17 g 10/22/21 aerosol inhaler Allergies Allergy/AdvReac Type Severity Reaction Status Date / Time acetaminophen [From Percocet] Allergy Unknown UNKNOWN Verified 11/07/20 13:55 aspirin [From Percodan] Allergy Unknown UNKNOWN Verified 11/07/20 13:55 codeine [Codeine] Allergy Unknown UNKNOWN Verified 11/07/20 13:55 diazepam [From Valium] Allergy Unknown UNKNOWN Verified 11/07/20 13:55 flurazepam [From Dalmane] Allergy Unknown UNKNOWN Verified 11/07/20 13:55 haloperidol [From Haldol] Allergy Unknown UNKNOWN Verified 11/07/20 13:55 ketamine [From Ketalar] Allergy Unknown UNKNOWN Verified 11/07/20 13:55 lorazepam [From Ativan] Allergy Unknown UNKNOWN Verified 11/07/20 13:55 meperidine [From Demerol] Allergy Unknown UNKNOWN Verified 11/07/20 13:55 morphine [Morphine] Allergy Unknown UNKNOWN Verified 11/07/20 13:55 oxycodone [From Percodan] Allergy Unknown UNKNOWN Verified 11/07/20 13:55 procaine [From Novocain] Allergy Unknown UNKNOWN Verified 11/07/20 13:55 Review of Systems Review of Systems: Yes all other systems are reviewed and are negative PMFSH Past Medical History Medical History COPD (chronic obstructive pulmonary disease) History of colon cancer, stage I History of right breast cancer Hypoventilation syndrome Morbid obesity KATRINA (obstructive sleep apnea) Respiratory failure Surgical History History of lumpectomy of right breast History of lymph node dissection of right axilla History of partial colectomy Family History Family History Mother Colon cancer Maternal Aunt Colon cancer Social History Social History Alcohol intake: never Patient Tobacco Use Status: Former Tobacco user Use of substances other than those prescribed or required for medical reasons: No Advance Directives: Yes Advance Directives on File: Yes Advance Directives Date on File: 08/11/20 Physical Exam Vital Signs: Vital Signs: Last Vital Signs Temp 98.0 F 02/24/22 22:33 Pulse 91 02/24/22 22:33 Resp 23 H 02/24/22 22:33 BP 144/83 H 04/24/22 22:33 Pulse Ox 95 02/24/22 22:33 Oxygen Flow Rate 3 02/24/22 15:48 BMI result Body Mass Index 45.2 Appearance: Alert. Oriented X3. No acute distress. Eyes: No pallor or icterus ENT: Pharynx normal. Oral Mucosa moist Neck: Normal inspection. Neck supple. CVS: Normal heart rate and rhythm. Pulses normal. Respiratory: No respiratory distress. Equal air entry bilateral, no wheezing/rhonchi , few fine crackles at the bases Abdomen: Soft and nontender. Bowel sounds are present, Skin: Skin warm and dry. Normal skin color. Normal skin turgor. Extremities: No lower extremity edema. No calf tenderness Neuro: Oriented X 3. No motor deficit. Course Reevaluation(s) Reevaluation #1: Patient very anxious feel uncomfortable going home asking for VNA which she used to have in the past no family member around at this time workup is negative for any acute will keep in the ER for observation for case management Time: 20:23 MDM - SOB/Dyspnea MDM Narrative Medical decision making narrative: Patient with COPD and chronic hypoventilation syndrome on home oxygen workup is negative except for mild anemia guaiac is negative patient advised to follow with her PCP patient is saturating 99% at room patient slightly anemic with hemoglobin 8.8 guaiac is negative patient has oxygen at home, patient is saturating 98% on 3 L patient asking for VNA will keep patient for case management Differential Diagnosis Differential diagnosis: Likely acute exacerbation of chronic obstructive airways disease Medical Records Attestation: I reviewed the patient's medical records. Lab Data Attestation: I reviewed the patient's lab results. Result diagrams: 02/24/22 17:12 02/24/22 17:12 Labs: Lab Results 02/24/22 02/24/22 02/24/22 Range/Units 16:54 17:12 17:12 WBC 6.1 (4.8-10.8) X10*3/uL RBC 3.08 L (4.20-5.50) X10*6/uL Hgb 8.8 L (12.0-16.0) g/dl Hct 29.6 L (37.0-47.0) % MCV 96.1 (80.0-98.0) fL MCH 28.6 (27.0-33.0) pg MCHC 29.7 L (31.0-35.0) g/dl RDW 14.6 (11.0-16.0) % Plt Count 213 (160-400) X10*3/uL MPV 10.8 (9.4-12.3) fL Immature Gran % (Auto) 0.2 (0.0-0.4) % Neut % (Auto) 82.5 H (45-73) % Lymph % (Auto) 9.8 L (20-40) % Bledsoe % (Auto) 5.4 (2-11) % Eos % (Auto) 1.8 (0-4) % Baso % (Auto) 0.3 (0-2) % Lymph # (Auto) 0.6 L (1.2-4.9) X10*3/uL Bledsoe # (Auto) 0.3 (0.1-1.2) X10*3/uL Eos # (Auto) 0.1 (0.0-0.4) X10*3/uL Baso # (Auto) 0.0 (0.0-0.2) X10*3/uL Abs Immat Gran (auto) 0.01 (0.00-0.03) X10*3/uL Absolute Neuts (auto) 5.1 (2.0-8.3) x10*3/uL Absolute Nucleated RBC 0.000 (0.0-0.012) X10*3/uL Nucleated RBC % (auto) 0.0 (0.0-0.2) /100WBC D-Dimer High Sensitivty NG/ML Sodium 143 (135-145) mmol/L Potassium 4.9 (3.3-5.1) mmol/L Chloride 105 (96-108) mmol/L Carbon Dioxide 31 H (22-29) mmol/L Anion Gap 12 (12-20) BUN 28 H (9-16) mg/dL Creatinine 1.04 (0.5-1.4) mg/dL Estim Creat Clear Calc 51.9 Estimated GFR 52 POC Glucose 124 H (60-115) mg/dL Random Glucose 135 H (60-115) mg/dL Calcium 9.3 D (8.4-10.2) mg/dL Total Bilirubin 0.2 (0.0-1.0) mg/dL AST 29 D (5-31) U/L ALT 21 (0-31) U/L Alkaline Phosphatase 105 (39-117) U/L Troponin I High Sens (<3.5-17.0) ng/L B-Natriuretic Peptide (<100) pg/mL Total Protein 6.1 L (6.5-8.0) g/dL Albumin 3.2 L (3.5-5.0) g/dL Stool Occult Blood (NEGATIVE) COVID-19 (REBECA) (Negative) COVID-19 Clin Com 02/24/22 02/24/22 02/24/22 Range/Units 17:12 17:12 17:12 WBC (4.8-10.8) X10*3/uL RBC (4.20-5.50) X10*6/uL Hgb (12.0-16.0) g/dl Hct (37.0-47.0) % MCV (80.0-98.0) fL MCH (27.0-33.0) pg MCHC (31.0-35.0) g/dl RDW (11.0-16.0) % Plt Count (160-400) X10*3/uL MPV (9.4-12.3) fL Immature Gran % (Auto) (0.0-0.4) % Neut % (Auto) (45-73) % Lymph % (Auto) (20-40) % Bledsoe % (Auto) (2-11) % Eos % (Auto) (0-4) % Baso % (Auto) (0-2) % Lymph # (Auto) (1.2-4.9) X10*3/uL Bledsoe # (Auto) (0.1-1.2) X10*3/uL Eos # (Auto) (0.0-0.4) X10*3/uL Baso # (Auto) (0.0-0.2) X10*3/uL Abs Immat Gran (auto) (0.00-0.03) X10*3/uL Absolute Neuts (auto) (2.0-8.3) x10*3/uL Absolute Nucleated RBC (0.0-0.012) X10*3/uL Nucleated RBC % (auto) (0.0-0.2) /100WBC D-Dimer High Sensitivty 201 NG/ML Sodium (135-145) mmol/L Potassium (3.3-5.1) mmol/L Chloride (96-108) mmol/L Carbon Dioxide (22-29) mmol/L Anion Gap (12-20) BUN (9-16) mg/dL Creatinine (0.5-1.4) mg/dL Estim Creat Clear Calc Estimated GFR POC Glucose (60-115) mg/dL Random Glucose (60-115) mg/dL Calcium (8.4-10.2) mg/dL Total Bilirubin (0.0-1.0) mg/dL AST (5-31) U/L ALT (0-31) U/L Alkaline Phosphatase (39-117) U/L Troponin I High Sens 10.1 (<3.5-17.0) ng/L B-Natriuretic Peptide 77 (<100) pg/mL Total Protein (6.5-8.0) g/dL Albumin (3.5-5.0) g/dL Stool Occult Blood (NEGATIVE) COVID-19 (REBECA) Negative (Negative) COVID-19 Clin Com See Note 02/24/22 Range/Units 18:21 WBC (4.8-10.8) X10*3/uL RBC (4.20-5.50) X10*6/uL Hgb (12.0-16.0) g/dl Hct (37.0-47.0) % MCV (80.0-98.0) fL MCH (27.0-33.0) pg MCHC (31.0-35.0) g/dl RDW (11.0-16.0) % Plt Count (160-400) X10*3/uL MPV (9.4-12.3) fL Immature Gran % (Auto) (0.0-0.4) % Neut % (Auto) (45-73) % Lymph % (Auto) (20-40) % Bledsoe % (Auto) (2-11) % Eos % (Auto) (0-4) % Baso % (Auto) (0-2) % Lymph # (Auto) (1.2-4.9) X10*3/uL Bledsoe # (Auto) (0.1-1.2) X10*3/uL Eos # (Auto) (0.0-0.4) X10*3/uL Baso # (Auto) (0.0-0.2) X10*3/uL Abs Immat Gran (auto) (0.00-0.03) X10*3/uL Absolute Neuts (auto) (2.0-8.3) x10*3/uL Absolute Nucleated RBC (0.0-0.012) X10*3/uL Nucleated RBC % (auto) (0.0-0.2) /100WBC D-Dimer High Sensitivty NG/ML Sodium (135-145) mmol/L Potassium (3.3-5.1) mmol/L Chloride (96-108) mmol/L Carbon Dioxide (22-29) mmol/L Anion Gap (12-20) BUN (9-16) mg/dL Creatinine (0.5-1.4) mg/dL Estim Creat Clear Calc Estimated GFR POC Glucose (60-115) mg/dL Random Glucose (60-115) mg/dL Calcium (8.4-10.2) mg/dL Total Bilirubin (0.0-1.0) mg/dL AST (5-31) U/L ALT (0-31) U/L Alkaline Phosphatase (39-117) U/L Troponin I High Sens (<3.5-17.0) ng/L B-Natriuretic Peptide (<100) pg/mL Total Protein (6.5-8.0) g/dL Albumin (3.5-5.0) g/dL Stool Occult Blood NEGATIVE (NEGATIVE) COVID-19 (REBECA) (Negative) COVID-19 Clin Com Discharge Plan Discharge Clinical Impression: COPD (chronic obstructive pulmonary disease), KATRINA (obstructive sleep apnea), Chronic hypoxemic respiratory failure Patient Disposition: Home, Self-Care Instructions: Sleep Apnea (DC), COPD (Chronic Obstructive Pulmonary Disease) (DC), Chronic Respiratory Failure (DC) Additional Instructions: Use your oxygen as advised Continue nebulizing treatment Follow with your cleaner and dyer Prescriptions: No Action omeprazole magnesium [Prilosec OTC] 20 mg tablet,delayed release (DR/EC) 20 mg PO DAILY Qty: 30 0RF carvedilol [Coreg] 6.25 mg tablet 6.25 mg PO BID Qty: 60 0RF Rx Instructions: must administer with a meal/food irbesartan 75 mg tablet 75 mg PO DAILY Qty: 30 0RF atorvastatin 80 mg tablet 80 mg PO BEDTIME Qty: 30 0RF Centrum Silver 0.4-300-250 mg-mcg-mcg tablet 1 tab PO DAILY Qty: 30 0RF acetazolamide 250 mg tablet 250 mg PO DAILY 90 Days Qty: 90 3RF theophylline 600 mg tablet extended release 24 hr 300 mg PO Q12H 90 Days Qty: 90 2RF albuterol sulfate 90 mcg/actuation HFA aerosol inhaler 1 puff PO Q4H PRN (Reason: for wheezing) Qty: 17 0RF metformin 500 mg tablet 1,000 mg PO DAILY 0RF Rx Instructions: 2 tabs in am and 1 tab in pm potassium chloride [Klor-Con M10] 10 mEq tablet,ER particles/crystals 10 meq PO DAILY 0RF furosemide 20 mg tablet 40 mg PO QAM 0RF mecobalamin (vitamin B12) 5,000 mcg tablet,disintegrating 500 mcg PO DAILY 0RF
--- NOTE | 2022-02-24 16:19 | ECG_ITS ---
Test Reason : DYSPNEA WEAKNESS Blood Pressure : / mmHG Vent. Rate : 083 BPM Atrial Rate : 083 BPM P-R Int : 162 ms QRS Dur : 090 ms QT Int : 360 ms P-R-T Axes : 055 018 044 degrees QTc Int : 423 ms Normal sinus rhythm Normal ECG When compared with ECG of 11-AUG-2020 11:17, Premature ventricular complexes are no longer Present Referred By: Pedro Gerardo Electronically Signed By:JUDSON NGUYỄN
[2022-02-24 17:18] LABS: MANUAL DIFF FLAG NO
[2022-02-24 17:19] LABS: Basophils Percent Auto 0.3 % (0-2); Eosinophils Absolute Auto 0.1 X10*3/uL (0.0-0.4); Eosinophils Percent Auto 1.8 % (0-4); Hematocrit 29.6 % (37.0-47.0); Hemoglobin 8.8 g/dl (12.0-16.0); Imm Gran Abs Auto 0.01 X10*3/uL (0.00-0.03); Imm Gran Pct Auto 0.2 % (0.0-0.4); Lymphocytes Absolute Auto 0.6 X10*3/uL (1.2-4.9); Lymphocytes Percent Auto 9.8 % (20-40); Mean Corpuscular HGB Conc 29.7 g/dl (31.0-35.0); Mean Corpuscular Hemoglobin 28.6 pg (27.0-33.0); Mean Corpuscular Volume 96.1 fL (80.0-98.0); Mean Platelet Volume 10.8 fL (9.4-12.3); Monocytes Absolute Auto 0.3 X10*3/uL (0.1-1.2); Monocytes Percent Auto 5.4 % (2-11); Neutrophils Absolute Auto 5.1 x10*3/uL (2.0-8.3); Neutrophils Percent Auto 82.5 % (45-73); Platelet Count 213 X10*3/uL (160-400); Red Blood Count 3.08 X10*6/uL (4.20-5.50); Red Cell Distribution Width 14.6 % (11.0-16.0); White Blood Count 6.1 X10*3/uL (4.8-10.8)
[2022-02-24 17:34] LABS: D Dimer High Sensitivity 201 NG/ML
[2022-02-24 17:39] LABS: Glucose, Whole Blood 124 mg/dL (60-115)
[2022-02-24 17:40] LABS: COVID-19 Test Negative (Negative); IDNOW Serial# 16C4AD1C
[2022-02-24 17:46] LABS: B Type Natriuretic Peptide 77 pg/mL (<100); Troponin-I High Sensitivity 10.1 ng/L (<3.5-17.0)
[2022-02-24 17:48] LABS: Alanine Aminotransferase 21 U/L (0-31); Albumin Level 3.2 g/dL (3.5-5.0); Alkaline Phosphatase 105 U/L (39-117); Anion Gap 12 (12-20); Aspartate Amino Transferase 29 U/L (5-31); Bilirubin Total 0.2 mg/dL (0.0-1.0); Blood Urea Nitrogen 28 mg/dL (9-16); Calcium 9.3 mg/dL (8.4-10.2); Carbon Dioxide 31 mmol/L (22-29); Chloride 105 mmol/L (96-108); Creatinine Clr Calc Pharmacy 51.9; Estimated Glomerular Filt Rate 52; Glucose Random 135 mg/dL (60-115); Potassium 4.9 mmol/L (3.3-5.1); Sodium 143 mmol/L (135-145); Total Protein 6.1 g/dL (6.5-8.0)
--- NOTE | 2022-02-24 18:05 | PC.NURSE ---
patient rang byers because she is finding it hard to beath and is light headed and short of breath. She says that the breathing technique shes was instructed to do are not helping. Will let the nurse know and retake vital signs.
[2022-02-24] MEDS: Albuterol/Iprat 2.5/0.5MG 3 ML AMPUL.NEB INHALE (18:26)
[2022-02-24 18:32] LABS: OBS Int Ctl Valid YES; OBS1 NEGATIVE (NEGATIVE)
--- NOTE | 2022-02-24 20:57 | PC.NURSE ---
pt feels like she cant manage herself at home. pt is o2 dependent at home and uses a walker. pt refered to the care team. pt states she wants a charlton catheter, pt encouraged to ambulate to the bathroom with assistance.
--- NOTE | 2022-02-24 23:51 | PC.NURSE ---
pt transferred into hospital bed. pt resting comfortably at this time.
[2022-02-25 00:43] VITALS: PULSE 98; RESP 22; O2SAT 97
--- NOTE | 2022-02-25 03:23 | PC.NURSE ---
pt requesting breathing treatment, ELVER luna.
[2022-02-25 06:33] VITALS: BP 119/69; PULSE 92; RESP 20; O2SAT 98
[2022-02-25 06:42] LABS: Glucose, Whole Blood 124 mg/dL (60-115)
[2022-02-25 09:35] VITALS: BP 119/69; PULSE 92; O2SAT 98
--- NOTE | 2022-02-25 10:17 | PC.NURSE ---
Pt A&OX4, no complaints of pain, maintaining mid 90's O2 sat on 3L NC which is her baseline, OOB with PT this morning. Per PT, pt had an episode of not being able to speak, this RN at bedside, pt was just SOB with exertion. Neuros intact, call byers within reach. Pt able to self reposition in bed, call byers within reach. Spoke to sister, Tessa Goldberg [phone] states pt is beginning to not be able to care for herself at home and has refused help up until this point. Sister is reachable at the number above. Will continue to monitor, awaiting VNA services for in home.
--- NOTE | 2022-02-25 10:56 | MHC.CM.ED ---
Addendum entered by Ellen La 02/25/22 11:30: Attempted to notify patient's sister/HCP, Tessa via telephone at [phone]. Male answered the phone and stated Tessa wasn't available. Original Note: Received case management consult overnight. Patient came to the ER due to SOB. Patient has long standing COPD history and is on oxygen at baseline. Physical therapy eval completed. Short term rehab is recommended. Met with patient in regards to discharge planning. Patient lives alone, ambulates with a walker and has oxygen at baseline. Patient doesn't recall oxygen company. PCP verified. HCP verified to be on file. Patient has not received any Covid vaccines due to my lungs and heart conditions. Patient has never tested positive for Covid. Patient is not interested in going to short term rehab at this time. Patient is agreeable to referral to VNA. [facility] is able to assist patient. [facility] is able to accept patient. BLS will be ordered for patient at d/c. Patient, Johnna RAYA and Dr Mosley aware. Continue to monitor for d/c needs.
== END 2022-02-25 11:59 | disposition home or self-care (01) ==
PROVIDERS: Emergency Provider Internal Medicine; PCP Physician Assistant Medical
DX: J96.11 Chronic respiratory failure with hypoxia (principal); J44.9 Chronic obstructive pulmonary disease, unspecified; G47.33 Obstructive sleep apnea (adult) (pediatric); Z99.81 Dependence on supplemental oxygen; Z20.822 Contact with and (suspected) exposure to COVID-19; Z87.891 Personal history of nicotine dependence
CPT/HCPCS: 36415; 71045; 80053; 82272; 82947; 83880; 84484; 85025; 85379; 87635; 93005; 94640; 97162; 99284; 99285

== ENCOUNTER → 2024-06-30 14:22 | Outpatient (RCR) | payer MEDICARE, SELFPAY ==
--- NOTE | 2020-11-21 15:32 | HO.HEMONCTE1 ---
[facility] Telehealth - Telehealth Location of Provider rendering services: HEM/ONC OFFICE. Location of Patient: HOME. Patient Identification confirmed using: Name, : Yes Telehealth Method: TELEPHONE Patient verbally consented to treatment: YES Patient verbally consented to billing insurance company: Yes Patient informed of any privacy concerns related to visit: Yes Medical Summary - Medical Summary Date of Service: 11/23/20 Chief complaint: Follow-up for: Breast cancer. Medical Summary: DIAGNOSIS: RIGHT BREAST CANCER. Interval History Interval history: Jaz is a pleasant 75-year-old lady with whom, a tele visit was held. She was initially seen here in September of 2002. She had was then lost to follow-up after May 2003. She again resurfaced in July of 2012, and since then has been lost to follow-up. She was seen in the ER, on 08/11: HPI narrative: 74yoF c PMHX of DM type 2, severe aortic stenosis, pulmonary hypertension, on 2-1/2 to 3 L of nasal cannula oxygen at home, chronic anemia, glaucoma, MRSA, macular degeneration, skin/colon and breast cancer presenting to the ED c c/o 3 weeks of generalized weakness, fatigue, lightheadedness, headaches, cold hands/feet, nose bleeds, Chest tightness, SOB worse c exertion and laying down, b/l leg swelling, dark cloudy urine and black colored stools/constipation intermittently. Denies fevers, N/V, changes in vision, cough, sputum production, back pain or paresthesias. CTA from 08/11: No evidence of pulmonary embolism. Enlarged heart, increased interstitial markings and small bilateral pleural effusions questionable for mild CHF. Right breast mass, skin thickening and induration of the fat suggestive of neoplasm. Surgical clips in the right axilla. Subsequently she had a biopsy done on 10/03, by Interventional Radiology. Biopsy of the mass at right 09:00 o'clock: Benign breast tissue with fibroelastotic changes, calcifications and chronic inflammation: No malignancy identified. She tells me that she is stable most of the time. She does not go out due to the virus. People have been dropping off things for her. She gets short of breath at times. She has COPD. She follows up with Dr. Aparicio. ROS: Energy is very low. Does frequent naps. Goes to sleep. Breast is lumpy and painful. However she is reassured that the biopsy was negative. She denies chest pain or trouble breathing. No abdominal pain nausea vomiting heartburn indigestion. Bowels are working without any gross blood in it. She enjoys a good appetite. She has gained weight. She is in good spirits. Rest of the review of systems is unremarkable. Previous History: In the fall of 2001: She was noted to have an abnormal mammogram with a spiculated density in the right upper outer quadrant. 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 Tumor was grade 2, ER positive, HI negative. One of the margins was positive. She underwent reexcision and axillary node dissection. None of the 23 lymph nodes showed any evidence of tumor. The patient was then treated with tamoxifen for about 5 years. She was subsequently diagnosed to have colon cancer and was treated for that. She tells me that she noticed some color changes in her right nipple a couple of months ago. She went in for an exam and she also felt some thickening in the scar tissue of her lumpectomy site. This had been present, but seemed to be progressing a bit. She had a mammogram at [facility] [place] on June 19 which showed asymmetric symmetry at the lumpectomy site suspicious for recurrence. Ultrasound was done on July 01 and ultrasound guided biopsy was taken. A metallic clip was placed. Pathology showed a dense hyaline fibrosis characteristic of scar from remote excisional biopsy, negative for carcinoma. The patient seen for a second opinion regarding that, in 2011. Review of Systems - Constitutional Reports no additional constitutional complaints - Eyes Reports no additional eye complaints - ENT Reports no additional ear, nose, mouth, and throat complaints - Cardiovascular Reports no additional cardiovascular complaints - Respiratory Reports no additional respiratory complaints - Gastrointestinal Reports no additional gastrointestinal complaints - Genitourinary Reports no additional female genitourinary complaints - Musculoskeletal Reports no additional musculoskeletal complaints - Integumentary/Breasts Skin/Breast: Reports no additional skin complaints - Neurologic Reports no additional neurologic complaints - Psychiatric Reports no additional psychiatric complaints - Endocrine Reports no additional endocrine complaints - Hematologic/Lymphatic Reports no additional hematologic/lymphatic complaints - Allergic/Immunologic Reports no additional allergic/immunologic complaints Home Medications and Allergies Home Medications Medication Instructions Recorded Confirmed Type furosemide 20 mg tablet 40 mg PO QAM tab 09/14/20 11/21/20 History potassium chloride 10 mEq 10 meq PO DAILY tab 09/14/20 11/21/20 History tablet,extended release(part/cryst) theophylline 600 mg 300 mg PO Q12H tab 09/14/20 11/21/20 History tablet,extended release 24 hr mecobalamin (vitamin B12) 5,000 500 mcg PO DAILY tab 11/07/20 11/21/20 History mcg disintegrating tablet metformin 1,000 mg PO DAILY 11/21/20 11/21/20 History Allergies Allergy/AdvReac Type Severity Reaction Status Date / Time acetaminophen [From Percocet] Allergy Unknown UNKNOWN Verified 11/07/20 13:55 aspirin [From Percodan] Allergy Unknown UNKNOWN Verified 11/07/20 13:55 codeine [Codeine] Allergy Unknown UNKNOWN Verified 11/07/20 13:55 diazepam [From Valium] Allergy Unknown UNKNOWN Verified 11/07/20 13:55 flurazepam [From Dalmane] Allergy Unknown UNKNOWN Verified 11/07/20 13:55 haloperidol [From Haldol] Allergy Unknown UNKNOWN Verified 11/07/20 13:55 ketamine [From Ketalar] Allergy Unknown UNKNOWN Verified 11/07/20 13:55 lorazepam [From Ativan] Allergy Unknown UNKNOWN Verified 11/07/20 13:55 meperidine [From Demerol] Allergy Unknown UNKNOWN Verified 11/07/20 13:55 morphine [Morphine] Allergy Unknown UNKNOWN Verified 11/07/20 13:55 oxycodone [From Percodan] Allergy Unknown UNKNOWN Verified 11/07/20 13:55 procaine [From Novocain] Allergy Unknown UNKNOWN Verified 11/07/20 13:55 Progress Note: A/P (1) Breast cancer Status: Acute Assessment and plan: DATABASE: 08/11: CBC: WBC 7.6, HGB 9.4, HCT 32.5, MCV 95.9, PLT 286. CMP: LYTES:WNL, GLU 125, BUN 28, COCONUT CANDY MAKER 1, Ca L8 0.7, a lb 3.6. LFTs: 0.2/80 06/20/16. BNP: 85. TSH 1.34. 75-year-old lady with a history of right Breast Carcinoma in 1997. She had a lumpectomy and radiation followed by 5 years of tamoxifen. She had some progressive changes in her scar tissue and recent biopsy has been negative, just positive for scar. This is reassuring. CTA from 08/11/20: No evidence of pulmonary embolism. Enlarged heart, increased interstitial markings and small bilateral pleural effusions questionable for mild CHF. Right breast mass, skin thickening and induration of the fat suggestive of neoplasm. Surgical clips in the right axilla. The patient was concerned so she was examined by Dr. Ngyuen Lainez. Biopsy of the mass at right 09:00 o'clock: Benign breast tissue with fibroelastotic changes, calcifications and chronic inflammation: No malignancy identified. She had a negative colonoscopy a couple of years ago. She will be due for another one in a couple of years' time. She is due for her bone density so we will schedule that. She will return in 3 months for a followup visit. Thanks, Nguyen Lainez M.D. Lonny Garcia M.D. (2) Colon cancer Status: Acute Assessment and plan: 2. Colon Carcinoma. She went in on July 23, 2000 for a screening colonoscopy by Dr. Nguyen Lainez. She had a family history of colon cancer. Her mother and aunt had it. Colonoscopy showed a lesion in the sigmoid colon at 30 cm. This showed moderately differentiated adenocarcinoma arising in association with tubular adenoma. She underwent surgical resection in August 2000 that did not reveal any evidence of residual tumor in the specimen. Three pericolonic lymph nodes were benign. Subsequently she has had surveillance colonoscopies, the last was January 22, [address] Pena. It revealed: IMPRESSIONS: 1. Erosive gastritis and duodenitis. 2. Hiatal hernia. 3. Diverticulosis. 4. Internal hemorrhoids. No biopsies were taken. Plan: Patient does not wish to have repeat colonoscopy at this point. Hopefully, she will agree once the pandemic has subsided. CC: Dr. Pena. - Time Spent With Patient Total time spent is greater than 50% in coordination of care (as documented) at patient's floor/unit and/or counseling patient: 25 - 35 minutes
== END | disposition home or self-care (01) ==
LOC: HO.ONC 11-21 13:54
PROVIDERS: PCP Internal Medicine; Referring Provider Surgery; Visit Provider Internal Medicine Medical Oncology
DX: Z85.3 Personal history of malignant neoplasm of breast (principal); Z85.038 Personal history of other malignant neoplasm of large intestine
CPT/HCPCS: 99214; Q3014